=== PATIENT | female | born 1970 | race Caucasian/White ===

== ENCOUNTER 2017-02-28 11:04 | Emergency (ER) | payer MEDICAID ==
[~2017-02-28] VITALS: Ht 154.9 cm; Wt 67.6 kg
[~2017-02-28 11:04] MED LIST: LISI2.5T47; [UNRECOGNIZED DRUG - CODE]
[2017-02-28 11:27] VITALS: BP 157/108
[2017-02-28] MEDS ORDERED: KETOROLAC TROMETH 60MG/2ML VIAL IM ONE (12:00)
== END 2017-02-28 12:49 | disposition home or self-care (01) ==
LOC: ER 11:04
DX: S46.912A Strain of unspecified muscle, fascia and tendon at shoulder and upper arm level, left arm, initial encounter (principal); F17.210 Nicotine dependence, cigarettes, uncomplicated; I10 Essential (primary) hypertension; Z88.0 Allergy status to penicillin; W19.XXXA Unspecified fall, initial encounter; Y93.H9 Activity, other involving exterior property and land maintenance, building and construction; Y99.8 Other external cause status; Y92.59 Other trade areas as the place of occurrence of the external cause
CPT/HCPCS: 73030; 73060; 73080; 96372; 99284; J1885

== ENCOUNTER 2018-06-08 11:18 | Emergency (ER) | payer MEDICAID, OTHER ==
[~2018-06-08] VITALS: Ht 154.9 cm; Wt 68.0 kg
[2018-06-08 12:14] VITALS: BP 129/96
[2018-06-08] MEDS ORDERED: HYDROcodone-ACET 5/325MG TAB PO ONE (12:15)
[2018-06-08] MEDS ORDERED: KETOROLAC TROMETH 60MG/2ML VIAL IM ONE (12:15)
== END 2018-06-08 13:12 | disposition home or self-care (01) ==
LOC: ER 11:18
DX: M79.632 Pain in left forearm (principal); M25.532 Pain in left wrist; I10 Essential (primary) hypertension; F17.210 Nicotine dependence, cigarettes, uncomplicated; Z90.49 Acquired absence of other specified parts of digestive tract; Z88.0 Allergy status to penicillin; W17.89XA Other fall from one level to another, initial encounter; Y93.39 Activity, other involving climbing, rappelling and jumping off; Y92.69 Other specified industrial and construction area as the place of occurrence of the external cause; Y99.8 Other external cause status
CPT/HCPCS: 73090; 73110; 81002; 81025; 96372; 99283; J1885

== ENCOUNTER 2018-09-19 22:29 | Emergency (ER) | payer OTHER ==
[~2018-09-19] VITALS: Ht 154.9 cm; Wt 72.6 kg
[2018-09-19 23:36] LABS: Basophils # (auto) 0.1 uL; Basophils % (auto) 0.8 % (0.0-2.0); Eosinophils # (auto) 0.1 uL; Eosinophils % (auto) 1.5 % (0.0-7.0); Hematocrit 40.9 % (36.0-46.0); Hemoglobin 13.9 g/dL (12.2-16.2); Lymphocytes # (auto) 2.8 uL; Lymphocytes % (auto) 29.1 % (10.0-50.0); Mean Corpuscular Hemoglobin 32.2 pg (28.0-32.0); Mean Corpuscular Hgb Conc. 34.1 g/dL (32.0-36.0); Mean Corpuscular Volume 94.4 fL (80.0-100.0); Monocytes # (auto) 0.7 uL; Monocytes % (auto) 7.1 % (0.0-12.0); Neutrophils # (auto) 5.9 uL; Neutrophils % (auto) 61.5 % (37.0-80.0); Nucleated Red Blood Cells % 0.2 %; Platelet Count (auto) 282 10^3/uL (140-450); Red Blood Cells 4.33 10^6/uL (4.0-5.20); Red Cell Distribution Width 13.7 % (11.8-14.3); White Blood Cell 9.5 10^3/uL (4.4-10.8)
[2018-09-19 23:42] LABS: Urine Bacteria FEW /hpf (None Seen); Urine Blood 1+ /uL (Negative); Urine Mucus FEW (None Seen); Urine Specific Gravity 1.021 (1.001-1.035); Urine WBC 4 /hpf (0 - 5)
[2018-09-19 23:52] LABS: Albumin 3.7 g/dL (3.4-5.0); Calcium 8.6 mg/dL (8.5-10.1)
[2018-09-19 23:58] LABS: Bilirubin, Total 0.3 mg/dL (0.2-1.0); Potassium 2.8 mmol/L (3.5-5.1); Total Protein 8.1 g/dL (6.4-8.2)
[2018-09-20 00:21] LABS: BUN/Creatinine Ratio 21.1
[2018-09-20] MEDS ORDERED: POTASSIUM CHL 20 Meq TABLET PO ONE (00:30)
[2018-09-20] MEDS ORDERED: SODIUM CHLORIDE 0.9% 1,000 ML IV ONE (07:11)
[2018-09-20] MEDS ORDERED: IOHEXOL 350 MG/ML 100ML IJ ONE (07:39)
[2018-09-20] MEDS ORDERED: KETOROLAC TROMETH 30 MG/ML 1ML VIAL IV ONE (08:45)
[2018-09-20 09:06] VITALS: BP 136/80
[2018-09-20] MEDS ORDERED: FUROSEMIDE 40 MG/4 ML VIAL IV ONE (10:45)
[2018-09-20] MEDS ORDERED: POTASSIUM CHL 10% (20 MEQ/15ML) 15ml ORAL SOLN PO ONE (10:45)
[2018-09-20] MEDS ORDERED: SPIRONOLACTONE 25 MG TAB PO ONE (10:45)
== END 2018-09-20 13:40 | disposition home or self-care (01) ==
LOC: ER 22:29
DX: R60.9 Edema, unspecified (principal); E87.6 Hypokalemia; E03.9 Hypothyroidism, unspecified; I10 Essential (primary) hypertension; F17.210 Nicotine dependence, cigarettes, uncomplicated; Z41.1 Encounter for cosmetic surgery; Z90.49 Acquired absence of other specified parts of digestive tract; Z88.0 Allergy status to penicillin
CPT/HCPCS: 36415; 71275; 80053; 81001; 83735; 83880; 84443; 85025; 85379; 93970; 94761; 96374; 99284; J1885; J7030; Q9967

== ENCOUNTER → 2019-10-11 | Emergency (ER) | payer MEDICAID ==
[~2019-10-11] VITALS: Ht 154.9 cm; Wt 71.7 kg
[~2019-10-11] MED LIST changes: +MORPHINE SULFATE 4 MG/ML SYR/VIAL IV ONE; +ONDANSETRON HCL 4 MG/2 ML VIAL IV ONE; +POTASSIUM EFFERVESENT TAB 25 MEQ PO ONE; +SODIUM CHLORIDE 0.9% 1,000 ML IV ONE; +metroNIDAZOLE 500MG/100ML 100 ML IV ONE
[2019-10-11 13:03] LABS: Basophils # (auto) 0.1 10 ^3/uL (0-0.2); Basophils % (auto) 0.5 % (0.0-2.0); Eosinophils # (auto) 0.1 10 ^3/uL (0-0.8); Eosinophils % (auto) 0.6 % (0.0-7.0); Hematocrit 42.8 % (36.0-46.0); Hemoglobin 14.2 g/dL (12.2-16.2); Lymphocytes # (auto) 1.8 10 ^3/uL (0.4-5.4); Lymphocytes % (auto) 15.3 % (10.0-50.0); Mean Corpuscular Hemoglobin 29.7 pg (28.0-32.0); Mean Corpuscular Hgb Conc. 33.1 g/dL (32.0-36.0); Mean Corpuscular Volume 89.7 fL (80.0-100.0); Monocytes # (auto) 0.7 10 ^3/uL (0-1.3); Monocytes % (auto) 5.7 % (0.0-12.0); Neutrophils # (auto) 9.2 10 ^3/uL (1.6-8.6); Neutrophils % (auto) 77.9 % (37.0-80.0); Nucleated Red Blood Cells % 0.1 %; Platelet Count (auto) 216 10^3/uL (140-450); Red Blood Cells 4.77 10^6/uL (4.0-5.20); White Blood Cell 11.8 10^3/uL (4.4-10.8)
[2019-10-11 13:50] LABS: Alanine Aminotransferase 46 U/L (13-56); Albumin 3.9 g/dL (3.4-5.0); Anion Gap 8 (5-15); Aspartate Aminotransferase 23 U/L (15-37); BUN/Creatinine Ratio 16.3; Blood Urea Nitrogen 13 mg/dL (7-18); Calcium 8.7 mg/dL (8.5-10.1); Carbon Dioxide 25 mmol/L (21-32); Chloride 106 mmol/L (98-107); GFR African American 98 mL/min; GFR Non-African American 81 mL/min; Glucose 122 mg/dL (74-106); Potassium 3.1 mmol/L (3.5-5.1); Sodium 139 mmol/L (136-145)
[2019-10-11 13:54] LABS: Alkaline Phosphatase 54 U/L (45-117); Bilirubin, Total 0.5 mg/dL (0.2-1.0); Total Protein 8.5 g/dL (6.4-8.2)
[2019-10-11 14:52] VITALS: BP 126/80
== END | disposition home or self-care (01) ==
LOC: ER 12:37
DX: K52.9 Noninfective gastroenteritis and colitis, unspecified (principal); E87.6 Hypokalemia; I10 Essential (primary) hypertension; F17.210 Nicotine dependence, cigarettes, uncomplicated; Z88.0 Allergy status to penicillin
CPT/HCPCS: 36415; 71045; 74176; 80053; 84484; 85025; 96361; 96365; 96366; 96375; 99285; J2270; J2405; J3490; J7030

== ENCOUNTER 2021-04-22 19:32 | Emergency (ER) | payer MEDICAID, OTHER ==
[~2021-04-22] VITALS: Ht 154.9 cm; Wt 65.8 kg
[~2021-04-22 19:32] MED LIST changes: -MORPHINE SULFATE 4 MG/ML SYR/VIAL IV ONE; -ONDANSETRON HCL 4 MG/2 ML VIAL IV ONE; -POTASSIUM EFFERVESENT TAB 25 MEQ PO ONE; -SODIUM CHLORIDE 0.9% 1,000 ML IV ONE; -metroNIDAZOLE 500MG/100ML 100 ML IV ONE
[2021-04-22] MEDS ORDERED: ACETAMINOPHEN 325 MG TAB PO ONE (21:01)
[2021-04-22 21:55] VITALS: BP 155/89
[2021-04-23] MEDS ORDERED: HYDROcodone-ACET 10/325MG TAB PO ONE
[2021-04-23] MEDS ORDERED: ONDANSETRON ODT 4 MG TAB PO ONE
== END 2021-04-23 02:34 | disposition home or self-care (01) ==
LOC: ER 19:32
DX: S13.4XXA Sprain of ligaments of cervical spine, initial encounter (principal); R51.9 Headache, unspecified; I10 Essential (primary) hypertension; M25.511 Pain in right shoulder; M25.512 Pain in left shoulder; Z88.0 Allergy status to penicillin; Z90.49 Acquired absence of other specified parts of digestive tract; V49.9XXA Car occupant (driver) (passenger) injured in unspecified traffic accident, initial encounter; Y93.89 Activity, other specified; Y92.89 Other specified places as the place of occurrence of the external cause; Y99.8 Other external cause status
CPT/HCPCS: 70450; 71250; 72125; 74176; 99284; Q0162

== ENCOUNTER 2022-04-06 19:06 | Emergency (ER) | payer MEDICAID, OTHER ==
[~2022-04-06] VITALS: Ht 154.9 cm; Wt 66.0 kg
[2022-04-06 20:22] VITALS: BP 145/86
[2022-04-06] MEDS ORDERED: ACETAMINOPHEN 500 MG TAB PO ONE (20:45)
[2022-04-06] MEDS ORDERED: ACET-6 PO (22:48)
== END 2022-04-06 23:20 | disposition home or self-care (01) ==
LOC: ER 19:07
DX: S13.4XXA Sprain of ligaments of cervical spine, initial encounter (principal); I10 Essential (primary) hypertension; F17.210 Nicotine dependence, cigarettes, uncomplicated; Z90.49 Acquired absence of other specified parts of digestive tract; Z79.899 Other long term (current) drug therapy; Z88.0 Allergy status to penicillin; V49.9XXA Car occupant (driver) (passenger) injured in unspecified traffic accident, initial encounter; Y93.89 Activity, other specified; Y92.410 Unspecified street and highway as the place of occurrence of the external cause; Y99.8 Other external cause status
CPT/HCPCS: 71046; 72040; 72100

== ENCOUNTER 2022-05-24 15:05 | Emergency (ER) | payer MEDICAID, OTHER ==
[~2022-05-24] VITALS: Ht 154.9 cm; Wt 68.0 kg
[~2022-05-24 15:05] MED LIST changes: +ACET-6 PO
[2022-05-24] MEDS ORDERED: ACETAMINOPHEN 325 MG TAB PO ONE (15:30)
[2022-05-24 16:33] VITALS: BP 137/84
[2022-05-24] MEDS ORDERED: cefTRIAXone SOD 1,000 MG VL IM ONE (16:45)
[2022-05-24] MEDS ORDERED: IBUPROFEN 600 MG TAB PO ONE (16:45)
[2022-05-24] MEDS ORDERED: PROM1SOL4 PO (17:32)
[2022-05-24] MEDS ORDERED: AZIT500T66 PO (17:32)
[2022-05-24] MEDS ORDERED: IBUP600T28 PO (17:32)
== END 2022-05-24 17:47 | disposition home or self-care (01) ==
LOC: ER 15:05
DX: J03.90 Acute tonsillitis, unspecified (principal); J20.9 Acute bronchitis, unspecified; F17.210 Nicotine dependence, cigarettes, uncomplicated; I10 Essential (primary) hypertension; Z90.49 Acquired absence of other specified parts of digestive tract; Z98.890 Other specified postprocedural states
CPT/HCPCS: 71046; 96372; 99283; J0696